=== PATIENT | male | born 1945 | race Caucasian/White ===

== ENCOUNTER 2022-08-01 11:25 | Observation (INO) | payer MEDICARE, BC ==
[2022-08-01] MEDS ORDERED: Furosemide 40 MG/4 ML VIAL IVPUSH ONE (12:29)
[2022-08-01] MEDS ORDERED: Clopidogrel 75 MG Tab PO ONE (16:39)
[2022-08-01] MEDS ORDERED: Heparin Sodium 5,000 Units/ML Vial IVPUSH ONE (16:50)
[2022-08-01] MEDS ORDERED: Heparin Sodium/D5W 250 ML IV ONE (16:53)
== END 2022-08-01 20:08 ==
LOC: KA.ZCENSUS 11:25
PROVIDERS: ADMIT Nurse Practitioner Family; ATTEND Student in an Organized Health Care Education/Training Program
DX: R06.02 Shortness of breath (principal); I25.10 Atherosclerotic heart disease of native coronary artery without angina pectoris; I21.4 Non-ST elevation (NSTEMI) myocardial infarction; E78.00 Pure hypercholesterolemia, unspecified; I11.0 Hypertensive heart disease with heart failure; I50.9 Heart failure, unspecified; J90 Pleural effusion, not elsewhere classified; R42 Dizziness and giddiness; I95.9 Hypotension, unspecified; E66.9 Obesity, unspecified; R91.8 Other nonspecific abnormal finding of lung field; Z68.30 Body mass index [BMI] 30.0-30.9, adult; Z79.82 Long term (current) use of aspirin; Z79.899 Other long term (current) drug therapy; Z90.49 Acquired absence of other specified parts of digestive tract; Z98.890 Other specified postprocedural states; Z87.891 Personal history of nicotine dependence; Z20.822 Contact with and (suspected) exposure to COVID-19
CPT/HCPCS: 36415; 84484; 93005; A9270-GY; J1644; J1940

== ENCOUNTER 2022-08-11 13:54 | Inpatient (IN) | payer MEDICARE, BC ==
[2022-08-11] MEDS ORDERED: LORazepam Conc Solution 2 MG/ML 30 ML Bottle BUCCAL PRN (15:42)
[2022-08-11] MEDS: HYDROmorphone 1 MG/ML Syringe IV SCH ×2 (16:28→20:49)
[2022-08-11] MEDS: Saliva Substitute Oral Spray 120 ML Bottle MUCMEM PRN (20:35)
[2022-08-12] MEDS: HYDROmorphone 1 MG/ML Syringe IV SCH ×7 (01:01→23:51)
[2022-08-12] MEDS: Sodium Chloride 0.9% 10 ML Syringe FLUSH PRN ×3 (01:05→04:28)
[2022-08-12] MEDS: Saliva Substitute Oral Spray 120 ML Bottle MUCMEM PRN ×2 (01:09→04:35)
[2022-08-12] MEDS: Carboxymethylcellulose Sodium 0.5% Ophth Soln 15 ML Bottle EYEBOTH PRN (04:39)
[2022-08-12] MEDS ORDERED: Bumetanide 1 MG Tab PO SCH (09:00)
[2022-08-12] MEDS ORDERED: Amiodarone 200 MG Tab PO SCH (09:00)
[2022-08-12] MEDS: LORazepam Conc Solution 2 MG/ML 30 ML Bottle BUCCAL PRN (10:40)
[2022-08-13] MEDS: HYDROmorphone 1 MG/ML Syringe IV SCH ×6 (03:35→23:38)
[2022-08-13] MEDS: Saliva Substitute Oral Spray 120 ML Bottle MUCMEM PRN ×2 (06:12→10:03)
[2022-08-13] MEDS: HYDROmorphone 1 MG/ML Syringe IV PRN ×2 (06:48→21:54)
[2022-08-13] MEDS: Carboxymethylcellulose Sodium 0.5% Ophth Soln 15 ML Bottle EYEBOTH PRN (08:30)
[2022-08-13] MEDS: LORazepam Conc Solution 2 MG/ML 30 ML Bottle BUCCAL PRN ×2 (14:22→18:22)
[2022-08-14] MEDS: HYDROmorphone 1 MG/ML Syringe IV PRN ×6 (01:48→23:26)
[2022-08-14] MEDS: HYDROmorphone 1 MG/ML Syringe IV SCH ×6 (03:48→21:40)
[2022-08-14 05:49] VITALS: BP 87/63; PULSE 60
[2022-08-14] MEDS: Saliva Substitute Oral Spray 120 ML Bottle MUCMEM PRN ×2 (06:05→21:43)
[2022-08-14] MEDS: Carboxymethylcellulose Sodium 0.5% Ophth Soln 15 ML Bottle EYEBOTH PRN ×2 (06:06→21:43)
[2022-08-14] MEDS: LORazepam Conc Solution 2 MG/ML 30 ML Bottle BUCCAL PRN ×2 (13:33→19:52)
[2022-08-15] MEDS: HYDROmorphone 1 MG/ML Syringe IV SCH ×6 (01:37→21:47)
[2022-08-15] MEDS: HYDROmorphone 1 MG/ML Syringe IV PRN ×6 (03:30→23:35)
[2022-08-15] MEDS: Saliva Substitute Oral Spray 120 ML Bottle MUCMEM PRN ×5 (07:43→23:30)
[2022-08-15] MEDS: LORazepam Conc Solution 2 MG/ML 30 ML Bottle BUCCAL PRN ×2 (10:19→19:21)
[2022-08-15] MEDS: Sodium Chloride 0.9% 10 ML Syringe FLUSH PRN ×6 (19:29→23:37)
[2022-08-15] MEDS: Carboxymethylcellulose Sodium 0.5% Ophth Soln 15 ML Bottle EYEBOTH PRN ×4 (19:29→23:35)
[2022-08-16] MEDS: LORazepam Conc Solution 2 MG/ML 30 ML Bottle BUCCAL PRN ×9 (00:33→23:30)
[2022-08-16] MEDS: Sodium Chloride 0.9% 10 ML Syringe FLUSH PRN ×4 (01:35→04:20)
[2022-08-16] MEDS: Saliva Substitute Oral Spray 120 ML Bottle MUCMEM PRN ×5 (01:40→22:51)
[2022-08-16] MEDS: Carboxymethylcellulose Sodium 0.5% Ophth Soln 15 ML Bottle EYEBOTH PRN ×5 (01:45→22:51)
[2022-08-16] MEDS: HYDROmorphone 1 MG/ML Syringe IV SCH ×6 (01:47→21:28)
[2022-08-16] MEDS: HYDROmorphone 1 MG/ML Syringe IV PRN ×6 (04:10→23:30)
[2022-08-16] MEDS: Glycopyrrolate 0.2 MG/ML SDV IVPUSH PRN ×2 (18:30→22:30)
[2022-08-16] MEDS ORDERED: LORazepam Conc Solution 2 MG/ML 30 ML Bottle BUCCAL SCH (19:30)
== END 2022-08-16 23:55 | disposition expired | DRG 951 ==
LOC: UNDOADMIN 15:40 → KA.MS 15:40
PROVIDERS: ADMIT Nurse Practitioner Family; ATTEND Nurse Practitioner Family
DX: Z51.5 Encounter for palliative care (principal); I50.23 Acute on chronic systolic (congestive) heart failure; I21.4 Non-ST elevation (NSTEMI) myocardial infarction; I13.0 Hypertensive heart and chronic kidney disease with heart failure and stage 1 through stage 4 chronic kidney disease, or unspecified chronic kidney disease; Z66 Do not resuscitate; M19.90 Unspecified osteoarthritis, unspecified site; I25.10 Atherosclerotic heart disease of native coronary artery without angina pectoris; I25.2 Old myocardial infarction; R91.1 Solitary pulmonary nodule; E66.9 Obesity, unspecified; E78.5 Hyperlipidemia, unspecified; N18.9 Chronic kidney disease, unspecified; R00.8 Other abnormalities of heart beat; M1A.9XX0 Chronic gout, unspecified, without tophus (tophi); G62.9 Polyneuropathy, unspecified; K59.00 Constipation, unspecified; M17.11 Unilateral primary osteoarthritis, right knee; M47.816 Spondylosis without myelopathy or radiculopathy, lumbar region; H35.30 Unspecified macular degeneration; G89.29 Other chronic pain; M54.59 Other low back pain; Z79.1 Long term (current) use of non-steroidal anti-inflammatories (NSAID); Z79.82 Long term (current) use of aspirin; Z98.49 Cataract extraction status, unspecified eye; Z87.891 Personal history of nicotine dependence; Z68.33 Body mass index [BMI] 33.0-33.9, adult; Z79.899 Other long term (current) drug therapy; Z95.5 Presence of coronary angioplasty implant and graft
CPT/HCPCS: A9270-GY; J1170; J3490